=== PATIENT | male | born 1940 | race Caucasian/White ===

== ENCOUNTER 2022-11-08 10:08 | Emergency (ER) | payer MEDICARE, SELFPAY ==
[2022-11-08 10:22] VITALS: BP 136/73; PULSE 99; RESP 16; TEMP 37.6; O2SAT 97; BMI 25.9
--- NOTE | 2022-11-08 11:08 | W.ED.MALEGU ---
HPI - Male Genitourinary General: Chief complaint: Urogenital-Male Stated complaint: possible dehydration Time Seen by Provider: 11/08/22 11:08 Source: patient Mode of arrival: ambulatory Limitations: no limitations History of Present Illness: This 82-year-old male presents to the ER with urinary difficulty for the last 2 days. He notes that since Wednesday night, he has been dribbling urine every 30 minutes. After each dribble, he notices that he has a lot of urine left behind in his bladder. Sometimes urination is painful and he notices a small amount of blood in his urine. He has no prior history of BPH or acute urinary retention. He denies fever, nausea or vomiting. Patient is uncomfortable but clinically stable. Associated symptoms: Reports dysuria Review of Systems General: Reports: 10 or more systems reviewed and unremarkable except in HPI and below : Reports: difficulty urinating, dysuria, urinary frequency, urinary dribbling and nocturia Physical Exam Const: COMMON NORMALS: no acute distress, patient oriented x3, no limitations and alert Chest: COMMONS NORMALS: normal inspection of the chest Resp: COMMON NORMALS: normal respiratory effort, No retractions, No use of accessory muscles and clear to auscultation bilaterally AUSCULTATION: clear to auscultation bilaterally Cardio: COMMON NORMALS: regular rate, regular rhythm and No murmurs present (Cardio) RATE: regular rate RHYTHM: regular rhythm GI: COMMON NORMALS: Normal to inspection, nondistended, normoactive bowel sounds present and non-tender : COMMON NORMALS: Yes no CVA tenderness BLADDER/KIDNEY EXAM: Yes no CVA tenderness Back/Pelvis: COMMON NORMALS: no CVA tenderness and no thoracic nor lumbar tenderness Extremity: GENERAL: Yes normal exam except as noted Neuro: COMMON NORMALS: patient oriented x3 and no focal motor deficits SENSORIUM/ORIENTATION: Yes alert Course Vital Signs: Vital signs: Vital Signs Temperature 99.6 F 11/08/22 10:22 Pulse Rate 89 11/08/22 12:33 Respiratory Rate 16 11/08/22 10:22 Blood Pressure 150/82 11/08/22 12:33 Pulse Oximetry 95 11/08/22 12:33 Oxygen Delivery Me thod 11/08/22 12:33 MDM - Male Medical Decision Making Following the insertion of Montiel catheter, a small amount of urine came out of the bladder. As opposed to my initial thinking of possible overflow incontinence, it appears that the frequency is primarily due to UTI. UA confirms a urinary tract infection. Patient has elevated white count of 23,000 with an absolute neutrophil count of 19.11. He will benefit from IV antibiotics and admission. When I brought this up with patient, he declined, stating that he wants to go home. I made him aware that there is a chance he may deteriorate at home. He insisted that he does not want to be admitted. Presently, his blood pressure is normal and vital signs are stable. Iadvised him to return to the ER if he develops fever, weakness or any new concerning symptoms. Meanwhile, the Montiel catheter will be removed. I will give him oral antibiotics to take at home rather than sign him out AMA. He needs to follow-up with his primary care physician within the next 48 hours. Patient verbalized understanding. Lab Data 11/08/22 12:23 11/08/22 12:23 Laboratory Results WBC 23.9 10^3/uL (4.0-10.0) H 11/08/22 12:23 RBC 4.84 10^6/uL (4.1-5.3) 11/08/22 12:23 Hgb 15.3 g/dL (11.7-16.6) 11/08/22 12:23 Hct 46.3 % (42.0-52.0) 11/08/22 12:23 MCV 95.7 fl (80-94) H 11/08/22 12:23 MCH 31.6 pg (28.0-34.0) 11/08/22 12:23 MCHC 33.0 g/dL (30.0-36.0) 11/08/22 12:23 RDW 12.9 % (12.1-15.1) 11/08/22 12:23 Plt Count 163 10^3/cmm (130-400) 11/08/22 12:23 MPV 10.4 fL (7.4-10.4) 11/08/22 12:23 Neut % (Auto) 80.0 % 11/08/22 12:23 Lymph % (Auto) 8.7 % 11/08/22 12:23 [place] % (Auto) 9.5 % 11/08/22 12:23 Eos % (Auto) 0.3 % 11/08/22 12:23 Baso % (Auto) 0.2 % 11/08/22 12:23 Neut # (Auto) 19.11 10^3/uL (1.8-7.7) H 11/08/22 12:23 Lymph # (Auto) 2.1 10^3/uL (0.8-4.8) 11/08/22 12:23 [place] # (Auto) 2.3 10^3/uL (0.2-0.9) H 11/08/22 12:23 Eos # (Auto) 0.1 10^3/uL (0.0-0.8) 11/08/22 12:23 Baso # (Auto) 0.1 10^3/uL (0.0-0.1) 11/08/22 12: Nucleated RBC % (auto) 0 % 11/08/22 12: Nucleated RBCs # 0.0 /100WBC 11/08/22 12:23 Sodium 134 mmol/L (136-145) L 11/08/22 12:23 Potassium 3.8 mmol/L (3.5-5.1) 11/08/22 12:23 Chloride 99 mmol/L (98-107) 11/08/22 12: Carbon Dioxide 23 mmol/L (22-29) 11/08/22 12:23 Anion Gap 15.8 (5-19) 11/08/22 12:23 BUN 15 mg/dL (8-23) 11/08/22 12:23 Creatinine 1.1 mg/dL (0.7-1.2) 11/08/22 12:23 GFR Calculation Not Reportable 11/08/22 12:23 Glucose 114 mg/dL (65-115) 11/08/22 12:23 Calculated Osmolality 280 mOsm/kg (285-295) L 11/08/22 12:23 Calcium 10.3 mg/dL (8.5-10.5) 11/08/22 12:23 Total Bilirubin 2.7 mg/dL (0.15-1.2) H 11/08/22 12:23 AST 31 U/L (0-40) 11/08/22 12:23 ALT 28 U/L (0-41) 11/08/22 12:23 Alkaline Phosphatase 138 U/L (40-130) H 11/08/22 12:23 Total Protein 7.0 g/dL (6.6-8.7) 11/08/22 12:23 Albumin 3.9 g/dL (3.5-5.2) 11/08/22 12:23 Globulin 3.1 g/dL (1.3-4.6) 11/08/22 12:23 Urine Color Dark yellow (Yellow) 11/08/22 12:00 Urine Appearance Cloudy (CLEAR) A 11/08/22 12:00 Urine pH 5 (5-7) 11/08/22 12:00 Ur Specific [place] 1.020 (1.005-1.030) 11/08/22 12:00 Urine Protein 1+ (Negative) H 11/08/22 12:00 Urine Glucose (UA) Norm (Normal) 11/08/22 12:00 Urine Ketones 1+ (Negative) H 11/08/22 12:00 Urine Blood 3+ (Negative) H 11/08/22 12:00 Urine Nitrate Positive (Negative) H 11/08/22 12:00 Urine Bilirubin 1+ (Negative) H 11/08/22 12:00 Urine Urobilinogen 4+ mg/dL (Negative) H 11/08/22 12:00 Ur Leukocyte Esterase 2+ (Negative) H 11/08/22 12:00 Urine RBC 15-25 /hpf (0-2) H 11/08/22 12:00 Urine WBC 55-80 /hpf (0-5) H 11/08/22 12:00 Ur Squamous Epith Cells Rare /hpf (0-5) 11/08/22 12:00 Amorphous Sediment Not Reportable 11/08/22 12:00 Urine Bacteria 4+ /hpf (NONE) H 11/08/22 12:00 Discharge Plan Discharge Condition: Stable Referrals: Antoni Pal MD [Primary Care Provider] - Coding Level of Care Code ED Super[facility] [employer] for [facility]g Fwd Exam Comprehensive
[2022-11-08 12:33] VITALS: BP 150/82; PULSE 89; O2SAT 95
[2022-11-08 12:41] LABS: Basophils # 0.1 10^3/uL (0.0-0.1); Basophils % 0.2 %; Eosinophils # 0.1 10^3/uL (0.0-0.8); Eosinophils % 0.3 %; Hematocrit 46.3 % (42.0-52.0); Hemoglobin 15.3 g/dL (11.7-16.6); Lymphocytes # 2.1 10^3/uL (0.8-4.8); Lymphocytes % 8.7 %; Mean Corpuscular Hemoglobin 31.6 pg (28.0-34.0); Mean Corpuscular Volume 95.7 fl (80-94); Mean Platelet Volume 10.4 fL (7.4-10.4); Monocytes # 2.3 10^3/uL (0.2-0.9); Monocytes % 9.5 %; Neutrophils # 19.11 10^3/uL (1.8-7.7); Nucleated Red Blood Cells % 0 %; Platelet Count 163 10^3/cmm (130-400); Red Blood Count 4.84 10^6/uL (4.1-5.3); Red Cell Distribution Width 12.9 % (12.1-15.1); White Blood Count 23.9 10^3/uL (4.0-10.0)
[2022-11-08 12:42] LABS: Urine Color Dark Yellow (Yellow)
[2022-11-08 12:43] LABS: Add Urine Microscopic? YES; Bilirubin Urine 1+ (Negative); Blood Urine 3+ (Negative); Glucose Urine UA Norm (Normal); Ketones Urine 1+ (Negative); Leukocyte Esterase Urine 2+ (Negative); Nitrate Urine Positive (Negative); Protein Urine 1+ (Negative); Urine Appearance Cloudy (CLEAR); Urobilinogen Urine 4+ mg/dL (Negative); pH Urine 5 (5-7)
[2022-11-08 12:47] LABS: Bacteria Urine 4+ /hpf; RBC Urine 15-25 /hpf (0-2); Squamous Epithelial Cell Urine RARE /hpf (0-5); WBC Urine 55-80 /hpf (0-5)
[2022-11-08 12:48] LABS: Add Urine Culture? Yes
[2022-11-08 12:56] LABS: Alanine Aminotransferase 28 U/L (0-41); Albumin Level 3.9 g/dL (3.5-5.2); Alkaline Phosphatase 138 U/L (40-130); Anion Gap 15.8 (5-19); Aspartate Amino Transferase 31 U/L (0-40); Blood Urea Nitrogen 15 mg/dL (8-23); Calcium 10.3 mg/dL (8.5-10.5); Carbon Dioxide 23 mmol/L (22-29); Chloride 99 mmol/L (98-107); Globulin 3.1 g/dL (1.3-4.6); Glucose 114 mg/dL (65-115); Osmolality Calculated 280 mOsm/kg (285-295); Potassium 3.8 mmol/L (3.5-5.1); Sodium 134 mmol/L (136-145); Total Bilirubin 2.7 mg/dL (0.15-1.2)
[2022-11-08 13:00] VITALS: BP 151/78; PULSE 88; O2SAT 95
[2022-11-08] MEDS: cefTRIAXone 1,000 MG in sodium chloride 0.9% (plus) 50 ML 100 MG IV (13:42)
[2022-11-08] MEDS: sodium chloride 0.9% 1,000 ML 999 ML IV (13:43)
[2022-11-08 14:00] VITALS: BP 145/78; PULSE 88; O2SAT 96
== END 2022-11-08 14:22 | disposition home or self-care (01) ==
PROVIDERS: Emergency Provider Family Medicine; PCP Family Medicine
DX: R33.9 Retention of urine, unspecified (principal)
CPT/HCPCS: 36415; 51702; 80053; 81001; 85025; 87077; 87086; 87186; 96365; 99284; J0696; J7030

== ENCOUNTER → 2022-11-16 14:35 | Outpatient (BNVA) | payer MEDICARE, SELFPAY | PROVIDERS: PCP Family Medicine; Visit Provider Family Medicine | DX: D72.829 Elevated white blood cell count, unspecified (principal); Z00.00 Encounter for general adult medical examination without abnormal findings; Z09 Encounter for follow-up examination after completed treatment for conditions other than malignant neoplasm; N39.0 Urinary tract infection, site not specified | CPT/HCPCS: 85025 ==

== ENCOUNTER → 2023-03-31 09:09 | Outpatient (BNVA) | payer MEDICARE, SELFPAY | PROVIDERS: PCP Family Medicine; Visit Provider Family Medicine | DX: Z00.00 Encounter for general adult medical examination without abnormal findings (principal); I10 Essential (primary) hypertension; E78.5 Hyperlipidemia, unspecified; E03.9 Hypothyroidism, unspecified; I25.10 Atherosclerotic heart disease of native coronary artery without angina pectoris | CPT/HCPCS: 80053; 80061; 84443; 85025 ==

== ENCOUNTER 2024-03-28 07:56 | Outpatient (CLI) | payer MEDICARE, SELFPAY ==
--- NOTE | 2024-03-28 08:01 | XR_ITS ---
WS: [id number] Exam: XR chest 2V* [id number] Date/Time of Exam: 03/28/2024 8:01 AM Reason For Exam: cough No priors. The lungs are fully expanded. Coarsening of interstitial lung markings in the lower lung zones may re present chronic change. No pleural effusion. Heart size is normal. The mediastinum is normal in conto ur. Signs of median sternotomy. Several old left-sided rib fractures. XR/XR chest 2V* [id number] IMPRESSION: 1. Coarsening of interstitial markings in the lower lung zones that may represe nt chronic change. No consolidating infiltrates or pneumothorax.
== END 2024-03-28 07:57 | disposition home or self-care (01) ==
LOC: RAD 07:58
PROVIDERS: PCP Family Medicine; Visit Provider Family Medicine
DX: R05.9 Cough, unspecified (principal); I10 Essential (primary) hypertension; I25.10 Atherosclerotic heart disease of native coronary artery without angina pectoris; E78.5 Hyperlipidemia, unspecified; E03.9 Hypothyroidism, unspecified; R35.1 Nocturia; E11.9 Type 2 diabetes mellitus without complications; R91.8 Other nonspecific abnormal finding of lung field
CPT/HCPCS: 71046; 80053; 80061; 82607; 83880; 84153; 84443; 85025; 86140